=== PATIENT | female | born 1980 | race American Indian/Alaskan Native ===

== ENCOUNTER 2019-01-11 13:10 | Outpatient (CLI) | payer BC ==
[2019-01-11 13:29] LABS: Hematocrit 30.8 % (30.3-42.9); Hemoglobin 10.5 gm/dl (10.1-14.3); Mean Corpuscular HGB Conc 34 % (30-34); Mean Corpuscular Volume 86 fl (79-97); Platelet Count 155 K/mm3 (140-440); Red Blood Count 3.56 M/mm3 (3.65-5.03); Red Cell Distribution Width 13.7 % (13.2-15.2)
--- NOTE | 2019-01-11 13:56 | XRay Report ---
ROUTINE CHEST, TWO VIEWS: HISTORY: Cough. The trachea, heart, mediastinal contour, lung oneill and bony thorax are unremarkable. IMPRESSION: Unremarkable chest x-ray.
[2019-01-11 13:58] LABS: Alanine Aminotransferase 12 units/L (7-56); Albumin 3.7 g/dL (3.9-5); BUN/Creatinine Ratio 14; Blood Urea Nitrogen 10 mg/dL (7-17); Calcium 8.7 mg/dL (8.4-10.2); Hemolysis Index 11
[2019-01-11 14:05] LABS: Bilirubin,Urine NEG (Negative); Blood,Urine NEG (Negative); Color,Urine Yellow (Yellow); Protein,Urine <15 mg/dL mg/dL (Negative)
[2019-01-11 14:06] LABS: Mucus,Urine FEW /HPF
== END 2019-01-11 13:11 | disposition home or self-care (01) ==
LOC: XRAY 13:10
PROVIDERS: ATTEND Internal Medicine
DX: R53.83 Other fatigue (principal); N39.0 Urinary tract infection, site not specified; R05 Cough; I10 Essential (primary) hypertension; K21.9 Gastro-esophageal reflux disease without esophagitis; E66.9 Obesity, unspecified
CPT/HCPCS: 36415; 71046; 80053; 81001; 85027